=== PATIENT | female | born 1995 | race Caucasian/White ===

== ENCOUNTER 2017-10-29 07:19 | Emergency (ER) | payer BC ==
--- NOTE | 2017-10-29 07:22 | ER Report ---
History and Physical Time Seen By MD: 07:21 HPI/ROS CHIEF COMPLAINT: Right lower quadrant abdominal pain HISTORY OF PRESENT ILLNESS:right lower quadrant abdominal pain that began around 7 PM last night; woke her from sleep at 1 am and was unable to fall asleep; no fevers. Patient states current pain level is 2 out of 10 she reports the pain is focally located in the right lower quadrant at McBurney's point. She had associated nausea last evening but none currently. Patient denies any abnormal vaginal discharge but does admit to some bleeding. LMP- ended a 1-1/2 weeks ago. REVIEW OF SYSTEMS: Respiratory: No cough, no dyspnea. Cardiovascular: No chest pain, no palpitations. Gastrointestinal: Right lower quadrant abdominal pain, nausea no vomiting Musculoskeletal: No back pain. Allergies: Coded Allergies: No Known Drug Allergies (Unverified , 10/29/17) Home Meds No Active Prescriptions or Reported Meds Constitutional Vital Sign - Last 24 Hours 10/29/17 10/29/17 10/29/17 10/29/17 07:29 07:30 08:00 08:14 Temp 98.4 Pulse 70 69 Resp 18 B/P (MAP) 112/76 112/76 (88) 97/73 (81) 114/81 (92) Pulse Ox 97 98 95 O2 Delivery Room Air 10/29/17 10/29/17 10/29/17 10/29/17 08:30 09:00 09:30 10:00 Pulse 67 62 63 64 B/P (MAP) 103/66 (78) 107/67 (80) 101/64 (76) 92/58 (69) Pulse Ox 99 98 95 10/29/17 10/29/17 10/29/17 10/29/17 10:30 11:00 11:30 12:00 Pulse 61 71 69 B/P (MAP) 112/73 (86) 99/65 (76) 92/77 (82) 91/67 (75) Pulse Ox 93 95 96 Intake and Output 10/29/17 10/29/17 10/30/17 15:00 23:00 07:00 Intake Total 1000 ml Balance 1000 ml Physical Exam General Appearance: The patient is alert, has no immediate need for airway protection and no current signs of toxicity. Eyes: Pupils equal and round no injection. Respiratory: Chest is non tender, lungs are clear to auscultation. Cardiac: regular rate and rhythm Gastrointestinal: Mild right lower quadrant pain to deep palpation. No rebound tenderness elicited Musculoskeletal: Neck: Neck is supple and non tender. Extremities have full range of motion and are non tender. Medical Decision Making Data Points Result Diagram: 10/29/17 0813 10/29/17 0813 Laboratory Hematology Test 10/29/17 07:25 10/29/17 08:13 Urine Color Yellow Urine Clarity Cloudy Urine pH 5.0 pH (4.8-9.5) Urine Specific [place] 1.020 Urine Protein 30 mg/dL (NEGATIVE) Urine Glucose (UA) Negative mg/dL (NEGATIVE) Urine Ketones Negative mg/dL (NEGATIVE) Urine Blood Large (NEGATIVE) Urine Nitrite Negative (NEGATIVE) Urine Bilirubin Negative (NEGATIVE) Urine Urobilinogen Negative mg/dL (0.2-1.9) Urine Leukocyte Esterase Large (NEGATIVE) Urine RBC 368 /HPF (0-2/HPF) Urine WBC 401 /HPF (0-5/HPF) Urine Squamous Epithelial Cells Many /LPF (</=FEW) Urine Bacteria Negative /HPF (NONE-FEW) Urine Hyaline Casts Few /LPF (NONE-FEW) Urine Mucus Few /HPF (NONE-FEW) Urine HCG, Qualitative Negative (NEGATIVE) Red Blood Count 4.71 M/uL (4.17-5.56) Mean Corpuscular Volume 89.8 fL (80.0-96.0) Mean Corpuscular Hemoglobin 30.7 pg (26.0-33.0) Mean Corpuscular Hemoglobin Concent 34.2 g/dL (32.0-36.0) Red Cell Distribution Width 13.8 % (11.5-14.5) Mean Platelet Volume 8.8 fL (7.2-11.1) Neutrophils (%) (Auto) 71.2 % (39.4-72.5) Lymphocytes (%) (Auto) 20.4 % (17.6-49.6) Monocytes (%) (Auto) 5.8 % (4.1-12.4) Eosinophils (%) (Auto) 2.3 % (0.4-6.7) Basophils (%) (Auto) 0.3 % (0.3-1.4) Nucleated RBC Relative Count (auto) 0.0 /100WBC Neutrophils # (Auto) 7.4 K/uL (2.0-7.4) Lymphocytes # (Auto) 2.1 K/uL (1.3-3.6) Monocytes # (Auto) 0.6 K/uL (0.3-1.0) Eosinophils # (Auto) 0.2 K/uL (0.0-0.5) Basophils # (Auto) 0.0 K/uL (0.0-0.1) Nucleated RBC Absolute Count (auto) 0.00 K/uL Sodium Level 140 mmol/L (137-145) Potassium Level 4.2 mmol/L (3.5-5.0) Chloride Level 100 mmol/L (98-107) Carbon Dioxide Level 26 mmol/L (22-31) Blood Urea Nitrogen 10 mg/dl (7-18) Creatinine 0.70 mg/dl (0.52-1.04) Glomerular Filtration Rate Calc > 60.0 Random Glucose 97 mg/dl (75-110) Calcium Level 9.8 mg/dl (8.4-10.2) Total Bilirubin 0.3 mg/dl (0.2-1.3) Aspartate Amino Transf (AST/SGOT) 20 U/L (0-35) Alanine Aminotransferase (ALT/SGPT) 27 U/L (0-56) Alkaline Phosphatase 88 U/L (0-126) Total Protein 7.7 gm/dl (6.3-8.2) Albumin 4.6 g/dl (3.5-5.0) Lipase 69 U/L (23-300) Chemistry Test 10/29/17 07:25 10/29/17 08:13 Urine Color Yellow Urine Clarity Cloudy Urine pH 5.0 pH (4.8-9.5) Urine Specific [place] 1.020 Urine Protein 30 mg/dL (NEGATIVE) Urine Glucose (UA) Negative mg/dL (NEGATIVE) Urine Ketones Negative mg/dL (NEGATIVE) Urine Blood Large (NEGATIVE) Urine Nitrite Negative (NEGATIVE) Urine Bilirubin Negative (NEGATIVE) Urine Urobilinogen Negative mg/dL (0.2-1.9) Urine Leukocyte Esterase Large (NEGATIVE) Urine RBC 368 /HPF (0-2/HPF) Urine WBC 401 /HPF (0-5/HPF) Urine Squamous Epithelial Cells Many /LPF (</=FEW) Urine Bacteria Negative /HPF (NONE-FEW) Urine Hyaline Casts Few /LPF (NONE-FEW) Urine Mucus Few /HPF (NONE-FEW) Urine HCG, Qualitative Negative (NEGATIVE) White Blood Count 10.4 k/uL (4.5-11.0) Red Blood Count 4.71 M/uL (4.17-5.56) Hemoglobin 14.4 g/dL (12.0-16.0) Hematocrit 42.3 % (34.0-47.0) Mean Corpuscular Volume 89.8 fL (80.0-96.0) Mean Corpuscular Hemoglobin 30.7 pg (26.0-33.0) Mean Corpuscular Hemoglobin Concent 34.2 g/dL (32.0-36.0) Red Cell Distribution Width 13.8 % (11.5-14.5) Platelet Count 245 K/uL (150-450) Mean Platelet Volume 8.8 fL (7.2-11.1) Neutrophils (%) (Auto) 71.2 % (39.4-72.5) Lymphocytes (%) (Auto) 20.4 % (17.6-49.6) Monocytes (%) (Auto) 5.8 % (4.1-12.4) Eosinophils (%) (Auto) 2.3 % (0.4-6.7) Basophils (%) (Auto) 0.3 % (0.3-1.4) Nucleated RBC Relative Count (auto) 0.0 /100WBC Neutrophils # (Auto) 7.4 K/uL (2.0-7.4) Lymphocytes # (Auto) 2.1 K/uL (1.3-3.6) Monocytes # (Auto) 0.6 K/uL (0.3-1.0) Eosinophils # (Auto) 0.2 K/uL (0.0-0.5) Basophils # (Auto) 0.0 K/uL (0.0-0.1) Nucleated RBC Absolute Count (auto) 0.00 K/uL Glomerular Filtration Rate Calc > 60.0 Calcium Level 9.8 mg/dl (8.4-10.2) Total Bilirubin 0.3 mg/dl (0.2-1.3) Aspartate Amino Transf (AST/SGOT) 20 U/L (0-35) Alanine Aminotransferase (ALT/SGPT) 27 U/L (0-56) Alkaline Phosphatase 88 U/L (0-126) Total Protein 7.7 gm/dl (6.3-8.2) Albumin 4.6 g/dl (3.5-5.0) Lipase 69 U/L (23-300) Urinalysis Test 10/29/17 07:25 Urine Color Yellow Urine Clarity Cloudy Urine pH 5.0 pH (4.8-9.5) Urine Specific [place] 1.020 Urine Protein 30 mg/dL (NEGATIVE) Urine Glucose (UA) Negative mg/dL (NEGATIVE) Urine Ketones Negative mg/dL (NEGATIVE) Urine Blood Large (NEGATIVE) Urine Nitrite Negative (NEGATIVE) Urine Bilirubin Negative (NEGATIVE) Urine Urobilinogen Negative mg/dL (0.2-1.9) Urine Leukocyte Esterase Large (NEGATIVE) Urine RBC 368 /HPF (0-2/HPF) Urine WBC 401 /HPF (0-5/HPF) Urine Squamous Epithelial Cells Many /LPF (</=FEW) Urine Bacteria Negative /HPF (NONE-FEW) Urine Hyaline Casts Few /LPF (NONE-FEW) Urine Mucus Few /HPF (NONE-FEW) Urine HCG, Qualitative Negative (NEGATIVE) EKG/Imaging Imaging EXAM DATE: ORDERING PHYSICIAN: HARSH CHAVARRIA TECHNOLOGIST: Location: [facility] Patient: Daja Francisco : 1995 Visit/Account:[id number] Date of Sevice: 10/29/2017 ABDOMEN/PELVIS WITH CONTRAST HISTORY: rlq ab pain TECHNIQUE: Following administration of IV contrast contiguous axial images acquired through the abdomen/pelvis. Coronal and sagittal reformatting also performed. Dose Lowering Technique One of the following dose optimization techniques was utilized in the performance of this exam: Automated exposure control; adjustment of the mA and/ or kV according to the patient's size; or use of an iterative reconstruction technique. Specific details can be referenced in the facility's radiology CT exam operational policy. CONTRAST: 75 mL Isovue-370 COMPARISON: None. FINDINGS: Visualized lung bases: Negative. Hepatobiliary: Negative. Spleen: Negative. Adrenals: Negative. Pancreas: Negative. Kidneys ureters or bladder: Negative. Genitalia: There Is a small amount of free pelvic fluid. The ovaries appear to be located in the pelvic cul-de-sac with each containing a hypodensity measuring 1.3 cm in diameter which may represent cysts. GI: There is a moderate amount of fecal material seen throughout the colon which can be seen with constipation. There is a small tubular structure extending from the cecum which may represent the appendix although was not ideally seen. This does not appear thickened and there is no surrounding inflammatory change. Vessels/spaces/nodes: Negative. Bones/soft tissues: Negative. Additional findings: None pertinent. IMPRESSION: There is a small amount of free pelvic fluid. The ovaries appear to be located in the pelvic cul-de-sac each containing 1.3 cm hypodensity which may represent ovarian cysts. This would be better evaluated with ultrasound Moderate amount of fecal material throughout colon which can be seen with constipation Appendix not well seen although there is a small tubular structure extending from the cecum which does not appear distended and may represent the appendix Report Dictated By: Kyara Ortiz MD at 10/29/2017 9:15 AM Report E-Signed By: Kyara Ortiz MD at 10/29/2017 9:27 AM WSN:[email or web address] FACILITY: [facility] PATIENT NAME: Daja Francisco : 1995 MR: [id number] V: [id number] EXAM DATE: [id number] ORDERING PHYSICIAN: HARSH CHAVARRIA TECHNOLOGIST: Location: [facility] Patient: Daja Francisco : 1995 Visit/Account:[id number] Date of Sevice: 10/29/2017 Ultrasound of the pelvis: Indication: Right lower quadrant pain since yesterday Technique: Transvaginal Comparison: CT abdomen pelvis performed earlier today Uterus: 7.8 x 3.3 x 5.2 cm. The myometrium appears homogeneous The endometrial stripe appears homogeneous measuring 10.1 mm in thickness Right ovary/adnexa: The right ovary measures 3.7 x 1.9 x 3.6 cm. There is normal vascular flow to the right ovary. There is a 1.8 x 1.1 x 1.5 cm cyst in the right ovary containing internal debris. Left ovary/adnexa: The left ovary measures 3 x 2 x 3 cm with normal vascular flow. There is a 1.9 x 0.9 x 1.8 cm cyst in the left ovary containing a small daughter cyst. Free fluid: Mild IMPRESSION: There is a mild amount of free pelvic fluid. 1.5 x 1.1 x 1.8 cm right ovarian cyst containing debris 1.9 x 0.9 x 1.8 cm cyst left ovary containing a. Small daughter cyst Report Dictated By: Kyara Ortiz MD at 10/29/2017 11:06 AM Report E-Signed By: Kyara Ortiz MD at 10/29/2017 11:11 AM ALDAIRN:LAUREN ED Course/Re-evaluation Clinical Indication for ER IV: Hydration, IV Access ED Course 10/29/2017 7:49:24 am Patient with right lower quadrant abdominal pain. At this time will be bloodwork IV patient is not requiring any pain and nausea medicine at this time. We'll perform imaging study with IV contrast enhanced CT scan of the abdomen and pelvis. Decision to Disposition Date: Oct 29, 2017 Decision to Disposition Time: 12:20 Depart Departure Latest Vital Signs Vital Signs Date Time Temp Pulse Resp B/P (MAP) Pulse Ox O2 Delivery O2 Flow Rate FiO2 10/29/17 12:00 69 91/67 (75) 96 10/29/17 07:29 98.4 18 Room Air Impression: Primary Impression: Abdominal pain Condition: Improved Disposition: HOME OR SELF-CARE New Scripts No Active Prescriptions or Reported Meds Patient Instructions: Abdominal Pain (ED) Additional Instructions: Return to the emergency department if your symptoms return or at any time if you develop fever or intractable vomiting. As discussed take Motrin or Tylenol as needed for ear pain. Problem Qualifiers Primary Impression: Abdominal pain Abdominal location: right lower quadrant Qualified Codes: R10.31 - Right lower quadrant pain HARSH CHAVARRIA MD Oct 29, 2017 07:22
[2017-10-29] MEDS ORDERED: NS(*) 0.9% 1000 ML BAG 1,000 ML IV ONE (07:50)
[2017-10-29 08:30] LABS: PLATELET COUNT, AUTOMATED 245 K/uL (150-450)
[2017-10-29] MEDS ORDERED: IOPAMIDOL 76% 75 ML INFUS BTL 75 ML ONE (08:33)
--- NOTE | 2017-10-29 09:31 | RADIOLOGY IMAGING REPORT ---
FACILITY: [facility] PATIENT NAME: Daja Francisco : 1995 MR: [id number] V: [id number] EXAM DATE: ORDERING PHYSICIAN: HARSH CHAVARRIA TECHNOLOGIST: Location: [facility] Patient: Daja Francisco : 1995 Visit/Account:[id number] Date of Sevice: 10/29/2017 ABDOMEN/PELVIS WITH CONTRAST HISTORY: rlq ab pain TECHNIQUE: Following administration of IV contrast contiguous axial images acquired through the abdom en/pelvis. Coronal and sagittal reformatting also performed. Dose Lowering Technique One of the following dose optimization techniques was utilized in the performance of this exam: Autom ated exposure control; adjustment of the mA and/or kV according to the patient's size; or use of an i terative reconstruction technique. Specific details can be referenced in the facility's radiology C T exam operational policy. CONTRAST: 75 mL Isovue-370 COMPARISON: None. FINDINGS: Visualized lung bases: Negative. Hepatobiliary: Negative. Spleen: Negative. Adrenals: Negative. Pancreas: Negative. Kidneys ureters or bladder: Negative. Genitalia: There Is a small amount of free pelvic fluid. The ovaries appear to be located in the pel bruno cul-de-sac with each containing a hypodensity measuring 1.3 cm in diameter which may represent cy sts. GI: There is a moderate amount of fecal material seen throughout the colon which can be seen with co nstipation. There is a small tubular structure extending from the cecum which may represent the appendix although was not ideally seen. This does not appear thickened and there is no surrounding inflammatory barfield e. Vessels/spaces/nodes: Negative. Bones/soft tissues: Negative. Additional findings: None pertinent. IMPRESSION: There is a small amount of free pelvic fluid. The ovaries appear to be located in the pelvic cul-de- sac each containing 1.3 cm hypodensity which may represent ovarian cysts. This would be better evalu ated with ultrasound Moderate amount of fecal material throughout colon which can be seen with constipation Appendix not well seen although there is a small tubular structure extending from the cecum which palafox s not appear distended and may represent the appendix Report Dictated By: Kyara Ortiz MD at 10/29/2017 9:15 AM Report E-Signed By: Kyara Ortiz MD at 10/29/2017 9:27 AM ALDAIRN:LAUREN
--- NOTE | 2017-10-29 11:15 | RADIOLOGY IMAGING REPORT ---
FACILITY: [facility] PATIENT NAME: Daja Francisco : 1995 MR: [id number] V: [id number] EXAM DATE: ORDERING PHYSICIAN: HARSH CHAVARRIA TECHNOLOGIST: [place] [facility] [place]aja [place] : 1995 Visit/Account:[id number] Date of Sevice: 10/29/2017 Ultrasound of the pelvis: Indication: Right lower quadrant pain since yesterday Technique: Transvaginal Comparison: CT abdomen pelvis performed earlier today Uterus: 7.8 x 3.3 x 5.2 cm. The myometrium appears homogeneous The endometrial stripe appears homogeneous measuring 10.1 mm in thickness Right ovary/adnexa: The right ovary measures 3.7 x 1.9 x 3.6 cm. There is normal vascular flow to th e right ovary. There is a 1.8 x 1.1 x 1.5 cm cyst in the right ovary containing internal debris. Left ovary/adnexa: The left ovary measures 3 x 2 x 3 cm with normal vascular flow. There is a 1.9 x 0.9 x 1.8 cm cyst in the left ovary containing a small daughter cyst. Free fluid: Mild IMPRESSION: There is a mild amount of free pelvic fluid. 1.5 x 1.1 x 1.8 cm right ovarian cyst containing debris 1.9 x 0.9 x 1.8 cm cyst left ovary containing a. Small daughter cyst Report Dictated By: Kyara Ortiz MD at 10/29/2017 11:06 AM Report E-Signed By: Kyara Ortiz MD at 10/29/2017 11:11 AM WSN:LAUREN
[2017-10-29 12:00] VITALS: BP 91/67
== END 2017-10-29 12:31 | disposition home or self-care (01) ==
LOC: ER 07:24
DX: N83.202 Unspecified ovarian cyst, left side (principal); N83.201 Unspecified ovarian cyst, right side
CPT/HCPCS: 74177; 76830; 81001; 81025; 83690; 85025; 96360; 99283; J7030; Q9967; 82040; 82247; 82310; 82374; 82435; 82565; 82947; 84075; 84132; 84155; 84295; 84450; 84460; 84520

== ENCOUNTER → 2018-06-22 | Outpatient (CLI) | payer BC ==
--- NOTE | 2018-06-22 17:07 | RADIOLOGY IMAGING REPORT ---
FACILITY: [facility] PATIENT NAME: Daja Francisco : 1995 MR: [id number] V: [id number] EXAM DATE: ORDERING PHYSICIAN: HARSH TAN TECHNOLOG[place] [facility] [place] Daja [place] : 1995 Visit/Account:[id number] Date of Sevice: 06/22/2018 Exam type: THORACIC SPINE 2 VIEW History: Neck pain for two months Comparison: None. Findings: There is a very gentle S-shaped scoliosis of the thoracolumbar spine. There is no evidence of acute fractures or subluxations. There is straightening of normal cervical lordosis which is incompletely imaged. IMPRESSION: 1. Very gentle S-shaped scoliosis of the thoracolumbar spine Straightening of the normal cervical lordosis which is incompletely imaged. This could be related to positioning versus muscle spasm Report Dictated By: Kyara Ortiz MD at 06/22/2018 4:46 PM Report E-Signed By: Kyara Ortiz MD at 06/22/2018 5:03 PM WSN:[email or web address]
== END ==
LOC: RAD 16:24
PROVIDERS: ATTEND Chiropractor
DX: M41.9 Scoliosis, unspecified (principal)
CPT/HCPCS: 72070